=== PATIENT | female | born 1980 | race American Indian/Alaskan Native ===

== ENCOUNTER 2017-08-03 05:07 | Emergency (ER) | payer MEDICAID ==
[2017-08-03] MEDS ORDERED: Sodium Chloride 0.9% 1,000 ML IV STA (05:29)
[2017-08-03] MEDS ORDERED: Sodium Chloride 0.9% 1,000 ML ONE (05:35)
[2017-08-03 05:42] LABS: BASO % 0.4 % (0.0-2.0); EOS # 0.2 K/uL (0.0-0.7); HEMOGLOBIN 13.4 g/dL (11.0-16.0); LYMPH # 1.4 K/uL (1.0-4.3); LYMPH % 11.7 % (20.0-40.0); MEAN CELL VOLUME 82.1 fL (81.0-99.0); MEAN CORPUSCULAR HEMOGLOBIN 28.4 pg (27.0-31.0); MEAN CORPUSCULAR HGB CONC 34.6 g/dL (33.0-37.0); MEAN PLATELET VOLUME 9.7 fL (7.2-11.7); MONO # 1.2 K/uL (0.0-0.8); MONO % 10.1 % (0.0-10.0); NEUT # 8.9 K/uL (1.8-7.0); NEUT % 75.8 % (50.0-75.0); RBC 4.71 Mil/uL (3.80-5.20); RED CELL DISTRIBUTION WIDTH 15.8 % (11.5-14.5); WHITE BLOOD COUNT 11.7 K/uL (4.8-10.8)
[2017-08-03 05:50] LABS: ALBUMIN 3.9 g/dL (3.5-5.0); ALT/SGPT 267 U/L (9-52); AST/SGOT 165 U/L (14-36); BLOOD UREA NITROGEN 6 mg/dL (7-17); CALCIUM 8.6 mg/dl (8.6-10.4); GFR AFRICAN-AMERICAN > 60; GFR NON-AFRICAN AMERICAN > 60; LIPASE 93 U/L (23-300)
--- NOTE | 2017-08-03 06:03 | C.PDOC ---
Addendum entered and electronically signed by Sherlyn Martel PA-C 08/03/17 10 :49: Addendum Addendum: 08/03/17 10:47 UA has positive nitrates. Will treat with Cipro. US shows Common bile duct stent, partially imaged. Dilated common bile duct measures approximately 1.3 cm. Intrahepatic biliary ductal dilatation. Cholecystectomy. Echogenic liver may be seen in setting of hepatic parenchymal disease or fatty infiltration. Patient reevaluated and has no fever and reports feeling better. Copy of US and reports given to patient. She to be discharged and follow up with DR Montesinos. Instruct to drink fluids and take antibiotics for UTI. Original Note: History Of Present Illness 36 year old female presents to the ER with a complaint of upper and lower abdominal pain for the past 2 days, associated with vomiting and loose stools. Patient reports she had surgery for gallstones approximately 1 year ago but was found to have a biliary duct obstruction and had a stent placed. Denies fever, chills, sick contact, or recent travel. Chief Complaint (Nursing): Abdominal Pain History Per: Patient History/Exam Limitations: no limitations Onset/Duration Of Symptoms: Days Current Symptoms Are (Timing): Still Present Location Of Pain/Discomfort: RUQ, RLQ, LUQ, LLQ Quality Of Discomfort: Unable To Describe Associated Symptoms: Nausea, Vomiting, Diarrhea. denies: Fever, Chills Exacerbating Factors: None Alleviating Factors: None Recent travel outside of the [place]: No Abnormal Vaginal Bleeding: No Past Medical History Reviewed: Historical Data, Nursing Documentation, Vital Signs Vital Signs: Last Vital Signs Temp 98.6 F 08/03/17 05:18 Pulse 80 08/03/17 05:18 Resp 16 08/03/17 05:18 BP 101/60 08/03/17 05:18 Pulse Ox 100 08/03/17 06:13 - Medical History PMH: Gall Bladder Disease (Gallstones) Surgical History: Cholecystectomy - [facility] Procedures DILATION OF COMMON BILE DUCT WITH INTRALUMINAL DEVICE, ENDO (08/02/16) EXTIRPATION OF MATTER FROM COMMON BILE DUCT, ENDO (08/02/16) FLUOROSCOPY OF GALLBLADDER & BILE DUCT USING L OSM CONTRAST (08/02/16) INSPECTION OF HEPATOBILIARY DUCT, ENDO (08/02/16) INSPECTION OF UPPER INTESTINAL TRACT, ENDO (08/02/16) RESECTION OF GALLBLADDER, PERCUTANEOUS ENDOSCOPIC APPROACH (08/02/16) Family History: States: Unknown Family Hx - Social History Hx Tobacco Use: Yes (light smoker) Hx Alcohol Use: No Hx Substance Use: No - Immunization History Hx Tetanus Toxoid Vaccination: No Hx Influenza Vaccination: No Hx Pneumococcal Vaccination: No Review Of Systems Constitutional: Negative for: Fever, Chills Cardiovascular: Negative for: Chest Pain, Palpitations Respiratory: Negative for: Shortness of Breath Gastrointestinal: Positive for: Nausea, Vomiting, Abdominal Pain, Diarrhea Genitourinary: Negative for: Dysuria, Hematuria Physical Exam - Physical Exam Appears: Other (Actively vomiting) Skin: Normal Color, Warm, Dry Head: Atraumatic, Normacephalic Eye(s): bilateral: Normal Inspection Oral Mucosa: Moist Throat: Normal, No Erythema, No Exudate Neck: Normal, Supple Chest: Symmetrical, No Tenderness Cardiovascular: Rhythm Regular Respiratory: Normal Breath Sounds, No Rales, No Rhonchi, No Wheezing Gastrointestinal/Abdominal: Soft, Tenderness (Mostly upper and epigastric, slight to suprapubic) Back: No CVA Tenderness Neurological/Psych: Oriented x3, Normal Speech ED Course And Treatment - Laboratory Results Result Diagrams: 08/03/17 05:40 08/03/17 05:40 O2 Sat by Pulse Oximetry: 100 (Room air) Pulse Ox Interpretation: Normal Progress Note: Blood work and urinalysis ordered. IV fluids, protonix, toradol, and zofran administered. Lab results show abnormal liver function, US ordered for further evaluation. Dilaudid administered. Disposition - Disposition Disposition Time: 07:00 Condition: FAIR Forms: [facility] (Polish) - Clinical Impression Clinical Impression: Abdominal pain - PA / [employer]IPPING [employer] / Resident Statement MD/DO has reviewed & agrees with the documentation as recorded. - Scribe Statement The provider has reviewed the documentation as recorded by the Scribe Eduardo Oakley All medical record entries made by the Scribe were at my direction and personally dictated by me. I have reviewed the chart and agree that the record accurately reflects my personal performance of the history, physical exam, medical decision making, and the department course for this patient. I have also personally directed, reviewed, and agree with the discharge instructions and disposition. Physician Patient Turnover Patient Signed Over To: Sherlyn Martel Handoff Comments: labs, UA, US pending
[2017-08-03] MEDS ORDERED: HYDROmorphone 1 mg/ml ISec IVP STA (06:07)
[2017-08-03 07:58] VITALS: RESP 20
[2017-08-03 08:20] LABS: HCG,QUALITATIVE URINE NEGATIVE (NEGATIVE)
[2017-08-03 08:27] LABS: SQUAMOUS EPITHIAL 21 /hpf (0-5); URINE BACTERIA MOD (<OCC); URINE BILIRUBIN 2+ (NEGATIVE); URINE BLOOD NEGATIVE (NEGATIVE); URINE CLARITY Hazy (Clear); URINE COLOR Amber (YELLOW); URINE GLUCOSE (UA) NORMAL (Normal); URINE LEUKOCYTE ESTERASE TRACE Leu/uL (Negative); URINE NITRATE POSITIVE (NEGATIVE); URINE PROTEIN 2+ mg/dL (NEGATIVE)
--- NOTE | 2017-08-03 10:36 | US ---
HISTORY: abdominal pain/vomiting, biliary stent COMPARISON: Abdominal ultrasound performed 08/02/16 TECHNIQUE: Sonographic evaluation of the abdomen. FINDINGS: LIVER: Measures 17.0 cm in sagittal dimension and appears within normal limits of size, shape, and echotexture. No focal hepatic mass identified. The main portal vein appears patent with normal directional flow. No intrahepatic bile duct dilatation. GALLBLADDER: Cholecystectomy. COMMON BILE DUCT: Measures 1.3 cm. Intrahepatic biliary ductal dilatation. Common bile stent, partially imaged. PANCREAS: Not well visualized. RIGHT KIDNEY: Measures 11.2 x 4.9 x 5.2 cm. No obstructing calculus or hydronephrosis identified. LEFT KIDNEY: Measures 12.2 x 5.5 x 5.5 cm. No obstructing calculus or hydronephrosis identified. SPLEEN: Measures approximately 8.9 cm. AORTA: Limited views appear unremarkable. IVC: Limited views appear unremarkable. OTHER FINDINGS: None. IMPRESSION: Common bile duct stent, partially imaged. Dilated common bile duct measures approximately 1.3 cm. Intrahepatic biliary ductal dilatation. Cholecystectomy. Echogenic liver may be seen in setting of hepatic parenchymal disease or fatty infiltration.
[2017-08-03 11:01] VITALS: BP 114/79; PULSE 79; TEMP 98.1; O2SAT 97
== END 2017-08-03 11:02 | disposition home or self-care (01) ==
LOC: C.ER 05:07
DX: N39.0 Urinary tract infection, site not specified (principal)
CPT/HCPCS: 76700; 80053; 81001; 83690; 84703; 85025; 87086; 87181; 96374; 96375; 99285; C9113; J1170; J1885; J2405; J7040